=== PATIENT | male | born 1955 | race Caucasian/White ===

== ENCOUNTER 2023-01-16 20:46 | Inpatient (IN) | payer MEDICARE, OTHER ==
[~2023-01-16] VITALS: Ht 182.9 cm; Wt 50.6 kg
[2023-01-17 04:18] LABS: Hematocrit 21.5 % (37.0-53.0); Hemoglobin 6.3 g/dL (13.5-17.5); Mean Corpuscular HGB 21.7 pg (26.0-34.0); Mean Corpuscular HGB Conc 29.3 g/dL (31.5-36.5); Mean Corpuscular Volume 74 fL (80-100); Mean Platelet Volume 11.2 fL (9.1-12.4); Platelet Count 238 K/mm3 (150-400); RDW Coefficient Variation 15.9 % (11.7-14.2); RDW Standard Deviation 43.1 fL (35.1-46.3); White Blood Cell Count 14.62 K/mm3 (4.00-11.30)
[2023-01-17 04:48] LABS: Bun/Creatinine Ratio 27.5 (12.0-20.0); Calcium, Blood 9.1 mg/dL (8.5-10.1); Creatinine, Blood 0.73 mg/dL (0.60-1.20); Percent Saturation 4.9 % (20.0-50.0); Potassium, Blood 4.2 mmol/L (3.5-5.5)
--- NOTE | 2023-01-17 05:12 | NUR ---
SHIFT SUMMARY PT A&OX3, HAS TROUBLE WITH DAYS. PAIN HAS BEEN MANAGED SO FAR WITH THREE 50MCG/HR TRANSDERMAL FENTANYL PATCHES. PT HAS BEEN NPO SINCE MIDNIGHT. SUPRAPUBIC CATHETER PUTTING OUT DARK/YELLOW URINE. PT STATED THE MED RX THAT CAME WITH THEIR TRANSFER WAS OUT OF DATE, AND COULD NOT RECALL CURRENT MED/DOSAGES. WILL PASS ALONG TO MORNING SHIFT TO SEE IF THEY CAN GET IN TOUCH WITH PT HOSPICE PROVIDER FOR UPDATED MED RX. MORNING LABS SHOWED A LOW HBG, CALLED AND HE STATED HE WOULD PUT IN ORDERS FOR BLOOD ADMINISTRATION. PT CALLS APPROPRIATELY, CALL LIGHT WITHIN REACH.
[2023-01-17] MEDS ORDERED: MORP20L SL (08:26)
[2023-01-17] MEDS ORDERED: OXYC5 PO (08:26)
[2023-01-17] MEDS ORDERED: PROC5 PO (08:27)
[2023-01-17] MEDS ORDERED: FENTANYL1 EAC7 TOP (09:22)
[2023-01-17] MEDS ORDERED: Ativan1 MG SL (10:37)
--- NOTE | 2023-01-17 11:33 | NUR ---
PT BROUGHT FROM FLOOR TO DAY SURGERY
[2023-01-17 12:41] LABS: Hematocrit 24.6 % (37.0-53.0); Hemoglobin 7.6 g/dL (13.5-17.5)
[2023-01-17 13:24] LABS: International Normalized Ratio 1.08; Prothrombin Time Results 11.3 Sec (9.7-11.5)
--- NOTE | 2023-01-17 14:14 | NUR ---
01/17/23 Almas4 Joan Rodgers PATIENT RECEIVED VANCO 1GM IN THE PREOP SETTING PRIOR TO ARRIVING IN THE OR.
--- NOTE | 2023-01-17 15:48 | NUR ---
PT HAS REPORTED WORSENING PAIN IN R HIP SIMCE AWAKING. PT GIVEN 2 DOSES 12.5MCG OF FENTANYL W MININAL RELIEF. VSS AND O2 SATS >94% ON RM AIR. PT CONTINUING TO SAY "OUCH" BUT IS ALSO APPEARING TO BE CONFUSED ABOUT THE PAIN LOCATION AND SITUATION. PT IS SENSITIVE TO ANY TOUCH OR SENSATION JUMPING AT THE SENSATION OF HIS IV BEING FLUSH WHICH IS PATENT AND FLOWING WELL. PT REPORTING PAIN RELIEF AFTER SECOND DOSE OF FENTANYL. PT HAS FULL SENSATION OF RLE. PT IS FULLY AWAKE AND COMMUNICATING W THIS RN ALTHOUGH HE DOES REPEAT HIMSELF AT TIMES. PT GIVEN 3RD DOSE OFR 12.5MCG FENTANYL FOR R HIP PAIN. REPORT GIVEN TO WADE SOFIA. TELE TO BE PLACED ON PT AND TAKEN BACK TO SURGICAL FLOOR.
--- NOTE | 2023-01-17 16:35 | NUR ---
POST OP ARRIVAL TO UNIT ALERT, ORIENTED, PLEASANT. REPORTS PAIN IS BETTER THAN BEFORE SURGERY BUT STILL PAINFUL. PPP. LLE w/ GAUZE & PRESSURE TAPE x 2 TO L HIP & 1 TO L LATERAL KNEE. NO DRNG NOTED. WIGGLES TOES. L FOOT INTERNALLY ROTATED SLIGHTLY. PROPPED w/ PILLOW.
--- NOTE | 2023-01-18 00:16 | NUR ---
CONTINUOUS PULSE OX PT ASKED FOR THE PULSE OX TO BE REMOVED D/T IT CAUSING ANXIETY WHEN FALSLY ALARMING FOR HIS HR. TELE IS IN PLACE AND CONFIRMS THAT HIS HR HAS BEEN HIGH 50'S-MID 60'S, NOT HIGH 40'S-LOW50'S THAT THE CONT PULSE OX WAS READING. PT HAS BEEN ASYMPTOMATIC OF BRADYCARDIA. O2 SATS HAVE BEEN >95 ON RA.
--- NOTE | 2023-01-18 02:53 | NUR ---
TELE TELE CALLED THAT PTS HR IS 44 AND HAS SUSTAINED FOR 20 MINUTES. BP IS STABLE AND PT REMAINS ASYMPTOMATIC
--- NOTE | 2023-01-18 03:14 | NUR ---
REPORT TO DR WORLEY CALLED THAT PTS HR DROPPED TO 39. PT REPORT FEELING WEAK AND TIRED, BUT VS ARE STABLE. DR FOREMAN ORDERED TO REPORT BACK TO HIM IF PTS LABS SHOW LOW H&H. NO FURTHER ORDERS AT THIS TIME
--- NOTE | 2023-01-18 04:44 | NUR ---
POD1 RIGHT HIP NAILING, DRESSINGS ARE C/D/I. SENSATION AND CIRCULATION REMAINS INTACT. PT HAS BEEN ABLE TO REPOSITION LEG T/O THE NIGHT. PT TOLLERATING TORADOL AND TYLENOL FOR PAIN MANAGEMENT AT THIS TIME BUT IS REQUESTING HIS HOME MEDICATION. PT HARDLY SLEPT T/O THE NIGHT. TOLLERATING PO INTAKE W/O N/V. DID NOT AMBULATE T/O THE NIGHT. TELE READS HR BETWEEN 42-50'S. PT REPORTS FEELING COLD AND TIRED. DR FOREMAN AWARE, AWAITING LAB RESULTS. PLAN FOR PT TO WORK WITH PT/OT AND POSSIBLY D/C TO REHAB. DEPENDING ON CONDITION MAY D/C BACK TO HOSPICE. THE PATIENT IS CURRENTLY RESTING IN BED, DENIES ANY NEEDS, CALL LIGHT IN REACH. SCD'S OFF D/T PT REFUSING.
[2023-01-18 05:01] LABS: BASOPHILS ABSOLUTE AUTO 0.01 K/mm3 (0.00-0.23); BASOPHILS PERCENT AUTO 0 % (0-2); EOSINOPHILS PERCENT AUTO 0 % (0-6); Hematocrit 23.5 % (37.0-53.0); Hemoglobin 7.2 g/dL (13.5-17.5); IMMATURE GRAN ABSOLUTE AUTO 0.06 K/mm3 (0.00-0.10); IMMATURE GRAN PERCENT AUTO 1 % (0-1); LYMPHOCYTES ABSOLUTE AUTO 0.46 K/mm3 (0.84-5.20); LYMPHOCYTES PERCENT AUTO 4 % (21-46); MONOCYTES ABSOLUTE AUTO 0.42 K/mm3 (0.16-1.47); MONOCYTES PERCENT AUTO 4 % (4-13); Mean Corpuscular HGB 23.3 pg (26.0-34.0); Mean Corpuscular HGB Conc 30.6 g/dL (31.5-36.5); Mean Corpuscular Volume 76 fL (80-100); Mean Platelet Volume 11.4 fL (9.1-12.4); NEUTROPHILS ABSOLUTE AUTO 10.93 K/mm3 (1.96-9.15); NEUTROPHILS PERCENT AUTO 92 % (41-73); Platelet Count 194 K/mm3 (150-400); RDW Coefficient Variation 17.2 % (11.7-14.2); RDW Standard Deviation 46.4 fL (35.1-46.3); Red Blood Cell Count 3.09 M/mm3 (4.30-5.90); White Blood Cell Count 11.88 K/mm3 (4.00-11.30)
[2023-01-18 05:51] LABS: Bun/Creatinine Ratio 27.9 (12.0-20.0); Calcium, Blood 9.3 mg/dL (8.5-10.1); Creatinine, Blood 0.72 mg/dL (0.60-1.20); Potassium, Blood 4.5 mmol/L (3.5-5.5)
--- NOTE | 2023-01-18 11:33 | NUR ---
"Spiritual Care | Nurse Referral Pt. is awake in bed and welcomes my visit. Pt. is unsettled by the prospect of being sent home to quickly. Listen with emapthy and a calaming presence. Normalize the Pt. experience and facilitate a life review. Rapport is established. Pt. displays evidence of a lifted spirit. Prayed with Pt. Pt. verbalizes gratitude for the spiritual care visit."
--- NOTE | 2023-01-18 18:40 | NUR ---
SHIFT SUMMARY PT A&OX4, VSS/RA, EDGAR PO, SUPRAPUBIC CATH WNL, TELE NSR 64 BPM. PAIN MANAGED W/ FENT PATCH LOW ABD, TYLENOL X2, TORADOL X1 (PT REF PM DOSE), ATIVAN X3, OXY 5 MG X2. NICOTINE PATCH R SHOULDER. POD1 R HIP NAILING, SURGICAL DRESSINGS CDI, PT EVAL'D, AMBULATES OOB/UP TO CHAIR W/FWW & GB. PLAN FOR DC TO SNF TOMORROW. WILL REPORT TO ONCOMING NOC RN.
--- NOTE | 2023-01-18 19:25 | NUR ---
DRESSING CHANGE DR CHRISTENSEN CAME TO THE FLOOR TO ROUND ON THE PATIENT AND CHANGED DRESSINGS ON X3 INCISIONS. DRESSED WITH AQUACELS. ORDERS TO CHANGE DRESSINGS IN X5 DAYS UNLESS SATURATED.
--- NOTE | 2023-01-19 04:57 | NUR ---
POD2 RIGHT HIP FIXATION. DRESSINGS CHANGED AT THE BEGINNING OF SHIFT WITH SURGEON, THEY REMAIN C/D/I. SENSATION AND CIRCUALTION REMAIN INTACT. VSS, TELE READS SR 56. PT SLEPT WELL T/O THE NIGHT. PT DID NOT GET OOB. SUPRAPUBIC REMAINS IN PLACE, SECURED WITH A STAT LOCK THE PT WAS PULLING AT IT. PT WAS CONFUSED AT THE BEGINNING OF SHIFT, CAREGIVER REPOTS PT HAS WAXING AND WANING MENTATION HIS CANCER HAS PROGRESSED. NO ACUTE EVENTS NOTED. PT DID NOT REQUIRE PAIN MEDICATION T/O THE NIGHT. PLAN FOR PT TO D/C TO SNF IN [place] TO BE CLOSE TO FAMILY. THE PATIENT IS CURRENTLY SLEEPING, IN NO DISTRESS, CALL LIGHT IN REACH
--- NOTE | 2023-01-19 17:11 | NUR ---
SHIFT SUMMARY PT A&OX4, VSS/RA, EDGAR PO-IMPROVED INTAKE TODAY, CHRONIC SUPRAPUBIC WITH YELLOW URINE OUT, TELE NSR BBB 60S, ATIVAN GIVEN FOR ANXIETY, PAIN MANAGED WITH FENT PATCH, NAPROSYN AND TYLENOL. POD2 R HIP NAILING, AQUACEL DRY/INTACT. PT/OT WORKED WITH PT TODAY, AMB INTO HALLWAY, UP TO CHAIR T/O SHIFT; AMB MIN ASSIST WITH FWW & GB. WILL REPORT TO ONCOMING NOC RN.
--- NOTE | 2023-01-20 03:32 | NUR ---
VTACH/PHYSICIAN CONTACT: YOUTH CARE PROFESSIONAL MONITOR CALLED AT APPROXIMATELY [phone] REPORTING THAT THE PT HAD AN APPROXIMATE 5 RUN OF VTACH. WENT AND ASSESSED PT, PT DENIED SOB, CHEST PAIN, CHEST TIGHTNESS, LIGHTHEADEDNESS/DIZZINESS. VITALS WERE TAKEN. CONFIRMED THAT NO OTHER REPORTS OF VTACH OCCURED TODAY WITH YOUTH CARE PROFESSIONALMARIA T. CALLED AND SPOKE TO REGARDING THE TELE REPORT. DISCUSSED HOW THE PT HAD REPORTED SOME RIGHT SIDED PAIN EARLIER IN THE SHIFT THAT QUICKLY WENT AWAY AND HAS NOT BEEN REPORTED SINCE. PROVIDER REQUESTED TO ENSURE THAT POTASSIUM AND MAGNESSIUM WERE GOING TO BE CHECKED THIS AM WITH LAB WORK (CONFIRMED LAB WORK WITH POURED PIPE MAKER). PROVIDER EXPLAIED THAT IF VTACH CONTINUES TO SUSTAIN/OCCUR TO CALL HIM.
[2023-01-20 04:24] LABS: BASOPHILS ABSOLUTE AUTO 0.05 K/mm3 (0.00-0.23); BASOPHILS PERCENT AUTO 1 % (0-2); EOSINOPHILS ABSOLUTE AUTO 0.27 K/mm3 (0.00-0.68); EOSINOPHILS PERCENT AUTO 3 % (0-6); Hematocrit 23.1 % (37.0-53.0); Hemoglobin 7.1 g/dL (13.5-17.5); IMMATURE GRAN ABSOLUTE AUTO 0.04 K/mm3 (0.00-0.10); IMMATURE GRAN PERCENT AUTO 0 % (0-1); LYMPHOCYTES ABSOLUTE AUTO 1.28 K/mm3 (0.84-5.20); LYMPHOCYTES PERCENT AUTO 14 % (21-46); MONOCYTES ABSOLUTE AUTO 0.55 K/mm3 (0.16-1.47); MONOCYTES PERCENT AUTO 6 % (4-13); Mean Corpuscular HGB 23.4 pg (26.0-34.0); Mean Corpuscular HGB Conc 30.7 g/dL (31.5-36.5); Mean Corpuscular Volume 76 fL (80-100); Mean Platelet Volume 11.1 fL (9.1-12.4); NEUTROPHILS ABSOLUTE AUTO 6.92 K/mm3 (1.96-9.15); NEUTROPHILS PERCENT AUTO 76 % (41-73); Platelet Count 255 K/mm3 (150-400); RDW Coefficient Variation 17.5 % (11.7-14.2); RDW Standard Deviation 47.6 fL (35.1-46.3); Red Blood Cell Count 3.04 M/mm3 (4.30-5.90); White Blood Cell Count 9.11 K/mm3 (4.00-11.30)
[2023-01-20 04:45] LABS: Calcium, Blood 9.5 mg/dL (8.5-10.1); Creatinine, Blood 0.75 mg/dL (0.60-1.20); Magnesium, Blood 2.2 mg/dL (1.6-2.4); Potassium, Blood 4.2 mmol/L (3.5-5.5)
--- NOTE | 2023-01-20 05:14 | NUR ---
SHIFT SUMMARY: PODx3 R HIP PINNING. X3 AQUACELS REMAIN IN PLACE ON R SIDE. PT PAIN WELL MANAGED T/O THE NIGHT. MEDICATED ONCE BEFORE BEDTIME AND MANAGED WELL. PATCHES REMAIN IN PLACE ON LLQ OF ABD. TOLERATING DIET. DENIES NAUSEA. SUPRAPUBIC CATHETER REMAINS IN PLACE AND IS DRAINING YELLOW URINE. EPISODE OF VTACH NOTED BY MONEY ROOM TELLER, SEE PREVIOUS NOTE. PT REMAINED ASYMPTOMATIC. AT THIS TIME, THIS RN HAS NOT BEEN NOTIFIED BY MONEY ROOM TELLER OF ANY FURTHER EPISODES. CONTACTED DR. AMAYA AT BEGINNING OF SHIFT TO CONFIRM STATUS OF PT. SEE DR. FARRAR'S NOTE REGARDING CONVERSATION AND PLAN. PLANS TO DC TO SNF. RESTING AT THIS TIME WITH CALL LIGHT IN REACH. WILL GIVE REPORT TO DAY TIME RN.
--- NOTE | 2023-01-20 10:18 | NUR ---
REPORT GIVEN AND CARE TURNED OVER TO ANDREW Srinivasan RN
--- NOTE | 2023-01-20 13:32 | NUR ---
CASE CONF WITH ANDREW SOFIA, REPORTS PT IS 3 DAYS POST OP, DOING WELL BUT IS HAVING AN EMOTIONAL DAY TODAY. NO SYMPTOM MANAGMENT NEEDED OR OTHER CONCERNS AT THIS TIME. PT SITTING UP IN RECLINER WHEN I ENTER THE ROOM AND IS AGREEABLE TO MY VISIT. PT REPORTS HE IS NOT HAVING ANY SIGNIFICANT PAIN, APPETITE IS GOOD BUT FEELS OFF TODAY. PT BECOMES TEARFUL AND REPORTS THAT HE IS DEALING WITH SOME PERSONAL ISSUES AND DOESNT THINK WE CAN HELP WITH IT. PT OPEN UP ABOUT HIS CONCERNS OF UNCERTAINTY ABOUT THE FUTURE AND WHERE HE IS GOING TO LIVE. PT REPORTS HIS FRIENDS HELPED MOVE OUT HIS BELONGING FROM HIS APARTMENT AT THE [facility] WHICH HE IS GRATEFUL FOR, BUT DOESNT KNOW WHERE HE WILL LIVE AFTER HE IS DONE WITH REHAB. PT ALSO VERBALIZES THAT HE IS HAVING TROUBLE SLEEPING R/T THIS STRESS. 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 THESE MEMORIES MAKE HIM SMILE AND HE RELAXES WHILE HE IS TELLING HIS STORY. PT ASKS FOR A CUP OF COFFEE AND IM HAPPY TO [employer] FOR HIM. PT HAS CLOSE FRIENDS IN THE [place] AND MAYBE THEY CAN HELP HIM SORT SOME OF THIS OUT. HE APPRECIATES THIS SUGGESTION AND I ADVISED HIM THAT I WILL LET HIM REST NOW AND VISIT AGAIN TOMORROW. AGAIN, HE IS APPRECIATIVE FOR MY VISIT AND EVERYONE WHO HAD BEEN CARING FOR HIM. PALLIATIVE CARE WILL CONTINUE TO FOLLOW. ALSO
--- NOTE | 2023-01-20 14:28 | NUR ---
Spiritual Care Attempt - Nurse Request Pt. is soundly resting and doesn not respond to my greeting. Prayed for Pt. and will return later in the afternoon to visit.
--- NOTE | 2023-01-20 14:39 | NUR ---
ASSUMED CARE OF PATIENT. PT LYING IN BED WITH EYES CLOSED, RESPIRATIONS EVEN AND UNLABORED
--- NOTE | 2023-01-20 18:30 | NUR ---
LYING IN BED WITH EYES CLOSED, EVEN UNLABORED RESPIRATIONS. PT AWOKE BRIEFLY WHEN TRAY TAKEN INTO ROOM AND ASKED TO BE REPOSITIONED
--- NOTE | 2023-01-21 04:51 | NUR ---
HOLLOW HANDLE BENCH WORKER SUMMARY PT IS POD 3 FOR R HIP NAILING. AQUACELS X3 TO R HIP/LEG ALL C/D/I. PT REPORTS THAT FENTANYL PATCH HAS BEEN CONTROLLING HIS PAIN THROUGH THE NIGHT. CHRONIC SUPRAPUBIC CATH DRAINING YELLOW URINE. PT HOPING FOR SNF PLACEMENT IN [place] WHERE HE CAN BE CLOSER TO FAMILY AND FRIENDS. VSS, WILL CONTINUE TO MONITOR.
--- NOTE | 2023-01-21 17:34 | NUR ---
SHIFT SUMMARY NO ACUTE CHANGES THIS SHIFT. PAIN MANAGED WELL PER EMAR. PATIENT EATING AND DRINKING W/O DIFFICULTY. CHRONIC SUPRAPUBIC FRAGA REMAINS IN PLACE, DRAINING DARK YELLOW URINE. PATIENT AMBULATING WELL W/ 1P ASSIST W/ FWW & GB, 50% WB ON RIGHT LEG. CALLS APPROPRIATELY, IN REACH. WILL REPORT TO ONCOMING RN AT 1900.
[2023-01-21 17:39] LABS: SARS-Cov-2 (COVID-19) PCR, MMC NEGATIVE (NEGATIVE)
--- NOTE | 2023-01-21 18:06 | NUR ---
PATIENT APPROVED TO DISCHARGE TO [facility]. TRANSPORT ARRANGED FOR 183 TODAY. THIS RN CALLED REPORT TO NURSE MELGAR AT [facility].
--- NOTE | 2023-01-21 18:52 | NUR ---
ESCORTED PATIENT OUT VIA W/C TO TRANSPORTER
== END 2023-01-21 19:01 | disposition home or self-care (01) | DRG 480 ==
LOC: SURS 20:46
PROVIDERS: Anesthesiology; Hospitalist; Orthopaedic Surgery; Student in an Organized Health Care Education/Training Program; ADMIT Internal Medicine
PROC: 30233N1 Transfusion of Nonautologous Red Blood Cells into Peripheral Vein, Percutaneous Approach (ICD-10-PCS; 2023-01-17)
PROC: 0QS634Z Reposition Right Upper Femur with Internal Fixation Device, Percutaneous Approach (ICD-10-PCS; principal; 2023-01-17 12:30)
DX: S72.141A Displaced intertrochanteric fracture of right femur, initial encounter for closed fracture (principal); E43 Unspecified severe protein-calorie malnutrition; Z68.1 Body mass index [BMI] 19.9 or less, adult; R64 Cachexia; D63.8 Anemia in other chronic diseases classified elsewhere; F17.210 Nicotine dependence, cigarettes, uncomplicated; Z66 Do not resuscitate; Z51.5 Encounter for palliative care; D72.829 Elevated white blood cell count, unspecified; C61 Malignant neoplasm of prostate; G89.29 Other chronic pain; W19.XXXA Unspecified fall, initial encounter; Z79.899 Other long term (current) drug therapy; Z79.891 Long term (current) use of opiate analgesic; Z98.890 Other specified postprocedural states; Z59.819 Housing instability, housed unspecified; Z20.822 Contact with and (suspected) exposure to COVID-19
CPT/HCPCS: 36415; 73552; 80048; 82728; 83540; 83550; 83735; 83880; 85014; 85018; 85025; 85027; 85610; 86850; 86900; 86901; 86923; 93005; 93010; 94760; 97110; 97112; 97162; 97166; 97530; 97535; A9270; C1713; C1769; J0690; J0696; J1100; J1650; J1885; J2250; J2405; J2704; J3010; J3370; J7030; J7050; J7120; P9016; U0004